=== PATIENT | female | born 1975 | race Caucasian/White ===

== ENCOUNTER 2020-10-07 20:13 | Emergency (ER) | payer OTHER, SELFPAY ==
--- NOTE | 2020-10-07 21:10 | PC.NURSE ---
x1 call for triage
--- NOTE | 2020-10-07 21:20 | PC.NURSE ---
x2 call for triage
== END 2020-10-07 22:45 | disposition left against medical advice (07) ==
PROVIDERS: Emergency Provider Emergency Medicine
DX: F41.9 Anxiety disorder, unspecified (principal); R11.10 Vomiting, unspecified